=== PATIENT | male | born 1990 | race Caucasian/White ===

== ENCOUNTER → 2022-03-17 | Outpatient (CLI) | payer BC, SELFPAY ==
[2022-03-17 12:12] LABS: Absolute Lymphocyte Count 1.81 X10^3/uL (0.83-4.51); Absolute Neutrophil Count 3.6 X10^3/uL (2.0-7.7); Basophil# 0.06 X10^3/uL; Eosinophil# 0.14 X10^3/uL; Eosinophils% 2.3 % (0-5); Hematocrit 47.9 % (40-54); Hemoglobin 16.6 g/dL (13.0-16.5); Lymphocyte # 1.81 X10^3/ul (0.83-4.51); Lymphocyte % 29.7 % (19-41); Mean Corp Hgb Conc 34.7 g/dL (32-36); Mean Corpuscular Hgb 30.6 pg (27.0-32.0); Mean Corpuscular Volume 88.4 fL (80-94); Mean Platelet Vol. 11.2 fl (6.2-12.0); Monocyte# 0.48 X10^3/uL; Monocyte% 7.9 % (0-10); NRBC Flagged by Analyzer 0 % (0-5); Neutrophil # 3.59 X10^3/uL (2.7-7.7); Neutrophil % 58.8 % (47-70); Platelet Count 290 K/mm3 (150-450); RBC Distribution Width CV 12.1 % (11.6-14.6); RBC Distribution Width SD 39.2 fl (35.1-43.9); Red Blood Count 5.42 M/mm3 (4.6-6.2); White Blood Count 6.1 K/mm3 (4.4-11.0)
[2022-03-17 12:40] LABS: ALB/GLOB Ratio 1.1 RATIO (0.9-2.4); AST(SGOT) 25 U/L (15-37); Alanine Aminotransfer ALT/SGPT 53 U/L (16-61); Alkaline Phosphatase 54 U/L (45-117); Anion Gap 9 (5-15); BUN 12 mg/dL (7-18); BUN/Creat Ratio 12.2 RATIO (10-20); Calcium,Total 9.4 mg/dL (8.5-10.1); Chloride 105 mmol/L (98-107); Cholesterol 170 mg/dL (200); Creatinine, Serum 0.99 mg/dL (0.70-1.30); EST Glomerular Filtration Rate 95 mL/min (>60); Est Glom Filt Rate - Afr Amer 115 mL/min (>60); Globulin 3.5 g/dL (2.2-4.2); Glucose 91 mg/dL (74-106); High Density Lipoprotein 36 mg/dL; Potassium 4.1 mmol/L (3.5-5.1); Protein, Total 7.5 g/dL (6.4-8.2); Sodium Level 140 mmol/L (136-145); Triglycerides 315 mg/dL; Very Low Density Lipoprotein 63 mg/dL (5-40)
== END | disposition home or self-care (01) ==
LOC: BIMLAB 10:22
PROVIDERS: PCP Internal Medicine; Referring Provider Internal Medicine; Visit Provider Internal Medicine
DX: I10 Essential (primary) hypertension (principal); E78.1 Pure hyperglyceridemia; Z86.39 Personal history of other endocrine, nutritional and metabolic disease
CPT/HCPCS: 36415; 80053; 80061; 83036; 85025

== ENCOUNTER → 2022-07-17 | Outpatient (CLI) | payer BC, SELFPAY | END | disposition home or self-care (01) | LOC: SL 11:30 | PROVIDERS: PCP Internal Medicine; Visit Provider Internal Medicine | DX: G47.30 Sleep apnea, unspecified (principal) | CPT/HCPCS: 95806 ==

== ENCOUNTER → 2022-08-17 | Outpatient (CLI) | payer BC, SELFPAY | END | disposition home or self-care (01) | LOC: SL 19:21 | PROVIDERS: PCP Internal Medicine; Visit Provider Internal Medicine | DX: G47.33 Obstructive sleep apnea (adult) (pediatric) (principal); Z99.89 Dependence on other enabling machines and devices ==

== ENCOUNTER → 2022-09-02 | Outpatient (CLI) | payer OTHER, SELFPAY ==
[2022-09-02 12:58] LABS: AST(SGOT) 24 U/L (15-37); Alanine Aminotransfer ALT/SGPT 39 U/L (16-61); Albumin, Serum 3.8 g/dL (3.2-5.0); Alkaline Phosphatase 58 U/L (45-117); Anion Gap 5 (5-15); BUN 20 mg/dL (7-18); BUN/Creat Ratio 19.6 RATIO (10-20); Calcium,Total 9.4 mg/dL (8.5-10.1); Chloride 104 mmol/L (98-107); Cholesterol 180 mg/dL (200); Creatinine, Serum 1.02 mg/dL (0.70-1.30); EST Glomerular Filtration Rate 91 mL/min (>60); Est Glom Filt Rate - Afr Amer 110 mL/min (>60); Globulin 3.9 g/dL (2.2-4.2); Glucose 90 mg/dL (74-106); High Density Lipoprotein 36 mg/dL; Potassium 4.6 mmol/L (3.5-5.1); Protein, Total 7.7 g/dL (6.4-8.2); Sodium Level 136 mmol/L (136-145); Triglycerides 231 mg/dL; Very Low Density Lipoprotein 46 mg/dL (5-40)
== END | disposition home or self-care (01) ==
PROVIDERS: PCP Internal Medicine; Visit Provider Internal Medicine
DX: E78.1 Pure hyperglyceridemia (principal)
CPT/HCPCS: 36415; 80053; 80061

== ENCOUNTER → 2023-02-26 | Outpatient (CLI) | payer OTHER, SELFPAY ==
[2023-02-26 12:36] LABS: Absolute Lymphocyte Count 2.12 X10^3/uL (0.83-4.51); Absolute Neutrophil Count 4.6 X10^3/uL (2.0-7.7); Basophil% 1.2 % (0-1); Eosinophil# 0.42 X10^3/uL; Eosinophils% 5.1 % (0-5); Hematocrit 51.1 % (40-54); Hemoglobin 17.1 g/dL (13.0-16.5); Lymphocyte # 2.12 X10^3/ul (0.83-4.51); Lymphocyte % 25.6 % (19-41); Mean Corp Hgb Conc 33.5 g/dL (32-36); Mean Corpuscular Hgb 29.6 pg (27.0-32.0); Mean Corpuscular Volume 88.6 fL (80-94); Mean Platelet Vol. 10.9 fl (6.2-12.0); Monocyte# 0.89 X10^3/uL; Monocyte% 10.7 % (0-10); NRBC Flagged by Analyzer 0 % (0-5); Neutrophil # 4.62 X10^3/uL (2.7-7.7); Neutrophil % 55.7 % (47-70); Platelet Count 305 K/mm3 (150-450); RBC Distribution Width CV 12.8 % (11.6-14.6); RBC Distribution Width SD 40.9 fl (35.1-43.9); Red Blood Count 5.77 M/mm3 (4.6-6.2); White Blood Count 8.3 K/mm3 (4.4-11.0)
[2023-02-26 13:15] LABS: AST(SGOT) 33 U/L (15-37); Alanine Aminotransfer ALT/SGPT 73 U/L (16-61); Alkaline Phosphatase 75 U/L (45-117); Anion Gap 7 (5-15); BUN 18 mg/dL (7-18); BUN/Creat Ratio 18.2 RATIO (10-20); Calcium,Total 9.6 mg/dL (8.5-10.1); Chloride 105 mmol/L (98-107); Cholesterol 188 mg/dL (200); Creatinine, Serum 0.99 mg/dL (0.70-1.30); EST Glomerular Filtration Rate 94 mL/min (>60); Est Glom Filt Rate - Afr Amer 114 mL/min (>60); Glucose 102 mg/dL (74-106); High Density Lipoprotein 33 mg/dL; Potassium 4.2 mmol/L (3.5-5.1); Sodium Level 139 mmol/L (136-145); Thyroid Stim Hormone (TSH) 1.06 uIU/mL (0.358-3.74); Triglycerides 269 mg/dL; Very Low Density Lipoprotein 54 mg/dL (5-40)
== END | disposition home or self-care (01) ==
LOC: BIMLAB 09:41
PROVIDERS: PCP Internal Medicine; Referring Provider Internal Medicine; Visit Provider Internal Medicine
DX: F41.9 Anxiety disorder, unspecified (principal); E66.9 Obesity, unspecified; I10 Essential (primary) hypertension; E78.1 Pure hyperglyceridemia
CPT/HCPCS: 36415; 80053; 80061; 83036; 84443; 85025